=== PATIENT | female | born 1980 | race Caucasian/White ===

== ENCOUNTER 2018-06-11 18:35 | Emergency (ER) | payer MEDICAID ==
[2015-09-08 09:27] VITALS: Wt 107.5 kg
[~2018-06-11 18:35] MED LIST: AMOX-362 PO; AMOX-559 PO; DOCU240C67 PO; ESTR0.62 PO; FAMO20TA28 PO; HYDR-3503 PO; IBUP800T37 PO; MELA1TAB5 SL; METH4TAB66 PO; NAPR500T75 PO; NORE-21 PO; NORG1TAB95 PO; OXYC-373 PO; PENI-22 PO; PHEN200T32 PO; TRAM-627 PO; [UNRECOGNIZED DRUG - CODE] PO
[2018-06-11 18:42] VITALS: BP 132/96
--- NOTE | 2018-06-11 19:05 | ER Report ---
History and Physical Time Seen By MD: 18:59 Hx. of Stated Complaint: TONSILS OUT YESTERDAY AFTERNOON. THROAT SWOLLEN. ONLY ABLE TO SWALLOW WATER. LEFT SIDE SEEMS WORSE THAN RIGHT. DOESN'T FEEL LIKE SHE'S SWALLOWING BLOOD HPI/ROS CHIEF COMPLAINT: Sore throat and swelling HISTORY OF PRESENT ILLNESS: This is a 38-year-old female presents to the emergency department for his sore throat and swelling status post tonsillectomy yesterday. Patient states she's had increased pain today and she had her looked in her throat and saw that her uvula was grossly enlarged, became very concerned decided to come in for further evaluation. No postoperative bleeding, no shortness of breath or concerns of an obstructed airway at this time. No fevers or chills. No chest pain. No shortness of breath. REVIEW OF SYSTEMS: Constitutional: No fever, no chills. Eyes: No discharge. ENT: As above. Cardiovascular: No chest pain, no palpitations. Respiratory: No cough, no shortness of breath. Gastrointestinal: No abdominal pain, no vomiting. Genitourinary: No hematuria. Musculoskeletal: No back pain. Skin: No rashes. Neurological: No headache. Allergies: Coded Allergies: acetaminophen (Verified Allergy, Unknown, 06/11/18) hydrocodone (Verified Allergy, Unknown, 06/11/18) Home Meds Reported Medications Melatonin (MELATONIN) 1 Mg Tab.subl, 1 MG SL 06/05/18 Famotidine (PEPCID) 20 Mg Tablet, 20 MG PO QDAY, #10 TAB 09/01/15 Discontinued Reported Medications Amoxicillin/Pot Clav 875-125 Mg Tab (AUGMENTIN 875-125 TABLET) 1 Each Tablet, 1 TAB PO Q12H, TAB 06/05/18 Discontinued Scripts Estrogens, Conjugated 0.625 Mg Tab (PREMARIN 0.625 MG TAB) 0.625 Mg Tablet, 0.625 MG PO QDAY, #30 TAB 11 Refills Prov:SARAH BETH STARKEY MD 09/08/15 Oxycodone Hcl/Acetaminophen (OXYCODONE-ACETAMINOPHEN 5-325) 1 Each Tablet, 1-2 EACH PO Q4H PRN for PAIN, #30 TAB TAKE 1-2 TABLET NEEDED FOR PAIN - NO CLOSER THAN EVERY 4 HOURS. Prov:SARAH BETH STARKEY MD 09/07/15 Ibuprofen (IBUPROFEN) 800 Mg Tablet, 1 TAB PO Q8H, #30 TAB Take with food every 8 hours. Prov:SARAH BETH STARKEY MD 09/07/15 Docusate Calcium (DOCUSATE CALCIUM) 240 Mg Capsule, 1 CAP PO BID, #30 CAPSULE Prov:SARAH BETH STARKEY MD 09/07/15 Past Medical/Surgical History The patient has a past medical and surgical history of heart murmur, hemorrhoids, GERD, right breast lumpectomy, hysterectomy, urinary tract infections, enlarged bladder, back pain, depression, anxiety, history of methamphetamine abuse and tonsillectomy. Reviewed Nurses Notes: Yes Hx Smoking: No Smoking Status: Former Smoker Exposure to Second Hand Smoke?: Yes Hx Substance Use Disorder: Yes ("I USED TO BE A DRUG ADDICT" METHAMPETAMINES FOR 2-3 YEARS) Hx Alcohol Use: Yes Constitutional Vital Sign - Last 24 Hours 06/11/18 18:42 Temp 97.8 Pulse 118 Resp 12 B/P (MAP) 132/96 O2 Delivery Room Air Physical Exam General Appearance: The patient is alert, has no immediate need for airway protection and no signs of toxicity. Eyes: Pupils equal and round no pallor or injection. ENT, Mouth: Mucous membranes are moist. There is eschar and erythema to the posterior oropharynx, uvula is erythematous with swelling, nothing that is occluding the airway. No stridorous upper airway sounds. Respiratory: There are no retractions, lungs are clear to auscultation. Cardiovascular: Regular rate and rhythm. Gastrointestinal: Abdomen is soft and non tender, no masses, bowel sounds normal. Neurological: Alert and oriented 4. Moving all extremities. Following all commands. No focal neuro deficits. Skin: Warm and dry, no rashes. Musculoskeletal: Neck is supple non tender. Extremities are nontender, nonswollen and have full range of motion. DIFFERENTIAL DIAGNOSIS: After history and physical exam differential diagnosis was considered for postoperative complication, uvulitis, obstructed airway. Medical Decision Making ED Course/Re-evaluation ED Course The patient was admitted to room. A history and physical obtained. Differential diagnoses were considered. After examination the patient, I did note that there is eschar to the posterior oropharynx with erythema noted as well uvula was midline, erythematous with edema however nothing that would be concerning for obstructing the airway at this time. I did offer to start an IV, give the patient some IV fluids as well as some IV Decadron, the patient declined. I did speak with Dr. Hooker the ENT. Performed a surgery as noted below, we discussed the case, as a were no concerns the findings tonight are expected and the inflammation will likely resolve in the next couple of days. I did discuss this with the patient and her family. I also gave the patient 7.5 mg hydrocodone in the emergency department. The patient had no other concerns at this time and was discharged home. 06/11/2018 7:16:11 pm I did speak with the patient's [employer] and throat surgeon, Dr. Hooker, I did discuss the patient's symptoms and then my physical exam, he did state that the patient should expect to have swelling of her uvula for the next couple of days and will likely begin to return to normal. He also was in agreement with the steroids that I was planning on giving the patient however she declined steroids at this time. Decision to Disposition Date: Jun 11, 2018 Decision to Disposition Time: 19:17 Depart Departure Latest Vital Signs Vital Signs Date Time Temp Pulse Resp B/P (MAP) Pulse Ox O2 Delivery O2 Flow Rate FiO2 06/11/18 18:42 97.8 118 12 132/96 Room Air Impression: Primary Impression: Status post tonsillectomy Condition: Improved Disposition: HOME OR SELF-CARE Referrals: VALERIE HOOKER JR, MD Patient Instructions: Tonsillectomy (GEN) Additional Instructions: Expect continued swelling for the next couple of days, then the inflammation antonio uld begin to go down. If you begin to have difficulties breathing or have any other concerns please return to the ED. Continue with the lidocaine for the throat pain. Continue with the hydrocodone, do be aware that this can cause constipation. Be sure to follow up with Dr. Hooker as scheduled. Return to the ED for any other concerns or worsening symptoms. EULA VILLAGRAN [employer] Jun 11, 2018 19:05
[2018-06-11] MEDS ORDERED: APAP/HYDROCODONE 325/5 TAB PO ONE (19:15)
[2018-06-16] MEDS ORDERED: OXYC-865 PO (10:07)
== END 2018-06-11 19:27 | disposition home or self-care (01) ==
LOC: ER 19:09
DX: J02.9 Acute pharyngitis, unspecified (principal); Z98.890 Other specified postprocedural states
CPT/HCPCS: 99283